=== PATIENT | male | born 1995 | race Caucasian/White ===

== ENCOUNTER 2022-10-07 19:46 | Emergency (ER) | payer MEDICARE, SELFPAY ==
[2022-10-07 20:00] VITALS: BP 125/81; PULSE 95; RESP 20; TEMP 36.6; O2SAT 100; BMI 22.4
--- NOTE | 2022-10-07 21:09 | ED.GIBLEED ---
HPI - GI Bleed General Time Seen by Provider: 21:09 Date Seen: 10/07/22 Chief complaint: GI Bleed Stated complaint: Rectum bleeding, panic attack Time Seen by Provider: 10/07/22 21:09 Source: patient, RN notes reviewed and old records reviewed Mode of arrival: ambulatory Limitations: no limitations History of Present Illness HPI Narrative: Preston is a very pleasant 27-year-old male with history of severe medical associated anxiety who comes to the emergency room with worries regarding possible cancer and bleeding from the rectum. Patient states that he does have a history of constipation secondary to using Seroquel Effexor any tunnel all. He notes that he has been using MiraLax and fiber supplements and that is actually improved. He notes that 4 days ago on TuesdayOctober 04 he began noticing some soreness around the rectal area. He had just returned from a long distance trip to [facility]. He notes that last night he was able to see some swelling in the area and then worsening pain today associated with blood when he was wiping. He notes that this tonight the swelling seemed to be improved but that losing of the blood continued any was worried about an anal fissure. He states that his friend had to have surgery because of an anal fissure. He notes that he has significant anxiety because his father had non-Hodgkin's lymphoma and when Preston was 8 years old. States he is terrified of cancer as well as any procedures. Patient denies any insertion activity of the rectum. He has never had this happen to him before. Related Data Home Medications Medication Instructions Recorded Confirmed melatonin 5 mg capsule 5 mg PO .Bedtime 07/07/22 10/07/22 quetiapine 300 mg tablet 300 mg PO .Bedtime 07/07/22 10/07/22 venlafaxine 100 mg tablet 150 mg PO DAILY 07/07/22 10/07/22 Previous Rx's Medication Instructions Recorded atenolol 25 mg tablet 25 mg PO QDAY #90 tabs 07/07/22 Allergies Allergy/AdvReac Type Severity Reaction Status Date / Time No Known Allergies Allergy Unknown Verified 10/07/22 20:05 Review of Systems Status of ROS: Reports: 6 or more systems reviewed and unremarkable except as noted in History and below Const: Denies: fever GI: Denies: abdominal pain, diarrhea, blood in stool or mucus in stool : Denies: painful urination Psych: Reports: anxiety and panic attacks PFSH PFSH Medical History Laceration Family History Other Adopted Social History Narrative: does not drink alcohol does not exercise highschool student, lives with mother non-smoker Smoking Status: Never smoker Little interest or pleasure in doing things: not at all Feeling down, depressed, or hopeless: not at all Exam Narrative: Exam Narrative: Patient is alert and oriented. He is very anxious and I do try to reassure him not to jump to any conclusions until we are able to look at this area. I do use male drivers' cash clerk for this. Examination of the rectum shows a hemorrhoid that has broken open but there is clot at the center. This is approximately the 11 o'clock position. It is very tender to the touch. I do not see any other abnormalities except some mild erythema around the rest of the rectum. Gently I use a tweezers to pull clot out of this opening and I do remove approximately 1 cm clot. This is followed by some oozing but relief per the patient. Const: Vital Signs, click to edit/add: Vital Signs - 24 hr 10/07/22 20:00 10/07/22 21:39 Temperature 98 F 97.2 F L Pulse Rate [Pulse Oximeter] 95 97 Respiratory Rate 20 20 Blood Pressure [Ri ght Upper Arm] 125/81 127/77 Pulse Oximetry 100 97 Oxygen Delivery Me thod Room Air Room Air Documenting provider has reviewed patient's vital signs: yes Course Vital Signs Vital signs: Initial Vital Signs Temperature 98 F 10/07/22 20:00 Temperature Source Temporal Artery Scan 10/07/22 20:00 Pulse Rate 95 10/07/22 20:00 Respiratory Rate 20 10/07/22 20:00 Blood Pressure 125/81 10/07/22 20:00 Blood Pressure Mean 95 10/07/22 20:00 Blood Pressure Position Sitting 10/07/22 20:00 Pulse Oximetry 100 10/07/22 20:00 Oxygen Delivery Method Room Air 10/07/22 20:00 Vital Signs Temperature 98 F 10/07/22 20:00 Pulse Rate 95 04/27/23 20:00 Respiratory Rate 20 10/07/22 20:00 Blood Pressure 125/81 10/07/22 20:00 Pulse Oximetry 100 10/07/22 20:00 Oxygen Delivery Method Room Air 10/07/22 20:00 Temperature 97.2 F L 10/07/22 21:39 Pulse Rate 97 10/07/22 21:39 Respiratory Rate 20 10/07/22 21:39 Blood Pressure 127/77 10/07/22 21:39 Pulse Oximetry 97 10/07/22 21:39 Oxygen Delivery Method Room Air 10/07/22 21:39 MDM - GI Bleed MDM Narrative Medical decision making narrative: 1. Hemorrhoid-hemorrhoid had already broken open per patient's history. I did remove some remainder clot and the this improved patient's discomfort. At this time I would not recommend any further intervention but I would recommend Vaseline to the area and trying to keep it clean. I recommend increasing his MiraLax use to keep his stool soft. He may also want to use warm water to cleanse the rectal area after stooling. He is feeling much better at this time. 2. Anxiety-patient had overwhelming anxiety while here but again feeling much better after we discuss etiology. This time I reassure him that this is not cancerous. He will be following up this primary MD to make sure he has resolution of the symptoms. 3. Disposition-home. Tylenol or ibuprofen as needed for pain. Medical Records Attestation: I reviewed the patient's medical records. Discharge Plan Discharge Clinical Impression: Hemorrhoid Patient Disposition: Home, Self-Care Condition: Improved Additional Instructions: continue to be gentle with wiping. You may want to have more warm baths or showers. Vaseline to area of concern. Increase use of MiraLax to keep stools soft. Follow-up with your primary MD as needed in the next 5-7 days. Prescriptions: No Action venlafaxine 100 mg tablet 150 mg PO DAILY quetiapine 300 mg tablet 300 mg PO .Bedtime melatonin 5 mg capsule 5 mg PO .Bedtime atenolol 25 mg tablet 25 mg PO QDAY Qty: 90 3RF Follow Up/Referrals: Clay Wilson MD [Primary Care Provider] - Stand Alone Forms: [facility] Info Instructions
[2022-10-07 21:39] VITALS: BP 127/77; PULSE 97; RESP 20; TEMP 36.2; O2SAT 97
== END 2022-10-07 21:40 | disposition home or self-care (01) ==
LOC: ED 21:39
PROVIDERS: Emergency Provider Family Medicine; PCP Family Medicine
DX: K64.8 Other hemorrhoids (principal); F41.9 Anxiety disorder, unspecified
CPT/HCPCS: 99283

== ENCOUNTER 2023-06-24 01:36 | Outpatient (CLI) | payer MEDICARE, SELFPAY | END 2023-06-24 01:37 | disposition home or self-care (01) | LOC: AMB 06-27 04:00 | PROVIDERS: PCP Family Medicine; Visit Provider Family Medicine | DX: I49.9 Cardiac arrhythmia, unspecified (principal) | CPT/HCPCS: A0998 ==